=== PATIENT | female | born 1990 | race Caucasian/White ===

== ENCOUNTER 2021-11-27 20:08 | Day surgery (SDC) | payer BC ==
[2021-11-27 20:30] VITALS: BMI 29.1
[2021-11-27] MEDS ORDERED: Promethazine HCl 25 MG/ML VIAL IM PRN (20:52)
[2021-11-27] MEDS ORDERED: hydrALAZINE 20 MG/ML VIAL SLOW IVP PRN (20:53)
[2021-11-27] MEDS ORDERED: Lactated Ringer's 1,000 ML IV SCH (21:00)
[2021-11-27 21:21] LABS: #Eosinphils 0.1 10x3/uL (0.0-0.5); #Monocytes 0.8 10x3/uL (0.0-1.1); #Neutrophils 5.7 10x3/uL (1.5-8.4); %Basophils 0.2 % (0.0-2.0); %Eosinophils 0.9 % (0.0-6.0); %Lymphocytes 24.5 % (18.0-47.0); %Neutrophils 64.7 % (40.0-75.0); Mean Corpuscular HGB CONC 35.3 g/dL (32.0-36.0); Mean Corpuscular Hemoglobin 34.2 pg (27.0-33.0); Mean Corpuscular Volume 96.9 fl (81.6-98.3); Mean Platelet Volume 11.2 fl (7.4-10.4); Platelet Count 157 10x3/uL (150-450); RBC Distribution Width 12.6 % (11.5-14.5); Red Blood Cell (RBC) Count 3.51 10x6/uL (3.90-5.03); White Blood Cell (WBC) Count 8.8 10x3/uL (3.5-10.5)
[2021-11-27] MEDS ORDERED: Metoclopramide HCl 10 MG/2 ML VIAL IVP SCH (21:30)
[2021-11-27 21:33] LABS: Anion Gap 12 mmol/L (10-20); BUN (Urea Nitrogen) 7 mg/dL (7.0-18.7); Calc. Creatinine Clearance 152 mL/min (70-130); Calcium 8.9 mg/dL (7.8-10.44); Carbon Dioxide 24 mmol/L (22-29); Chloride 108 mmol/L (98-107); Glucose 90 mg/dL (70-105); Magnesium 1.9 mg/dL (1.6-2.6); Potassium 3.6 mmol/L (3.5-5.1); Sodium 140 mmol/L (136-145)
== END 2021-11-27 22:45 | disposition home or self-care (01) ==
LOC: CSHLD/OP 20:08
PROVIDERS: ATTEND Obstetrics & Gynecology
DX: O21.2 Late vomiting of pregnancy (principal); O99.282 Endocrine, nutritional and metabolic diseases complicating pregnancy, second trimester; E86.0 Dehydration; O99.891 Other specified diseases and conditions complicating pregnancy; R19.7 Diarrhea, unspecified; Z3A.24 24 weeks gestation of pregnancy
CPT/HCPCS: 80048; 83735; 85025; J2550; J2765

== ENCOUNTER 2022-02-23 01:34 | Inpatient (IN) | payer BC ==
[2022-02-23 01:58] VITALS: BMI 29.9
[2022-02-23] MEDS ORDERED: hydrALAZINE 20 MG/ML VIAL SLOW IVP PRN ×2 (02:43→04:18)
[2022-02-23] MEDS ORDERED: Promethazine HCl 25 MG/ML VIAL IM SCH (02:45)
[2022-02-23] MEDS ORDERED: Morphine 10 MG/ML VIAL SLOW IVP SCH (02:45)
[2022-02-23] MEDS ORDERED: diphenhydrAMINE 50 MG/ML VIAL IVP PRN ×2 (03:34→14:52)
[2022-02-23] MEDS ORDERED: Butorphanol Tartrate 1 MG/ML VIAL SLOW IVP SCH (03:45)
[2022-02-23 04:04] LABS: Hemoglobin 11.8 g/dL (12.0-15.5); Mean Corpuscular HGB CONC 35.1 g/dL (32.0-36.0); Mean Corpuscular Hemoglobin 31.3 pg (27.0-33.0); Mean Corpuscular Volume 89.1 fl (81.6-98.3); Mean Platelet Volume 12.2 fl (7.4-10.4); Platelet Count 148 10x3/uL (150-450); RBC Distribution Width 12.8 % (11.5-14.5); Red Blood Cell (RBC) Count 3.77 10x6/uL (3.90-5.03); White Blood Cell (WBC) Count 12.1 10x3/uL (3.5-10.5)
[2022-02-23] MEDS ORDERED: Promethazine HCl 25 MG/ML VIAL IM PRN ×2 (04:18→14:52)
[2022-02-23] MEDS ORDERED: Ibuprofen 800 MG TAB PO PRN (04:18)
[2022-02-23] MEDS ORDERED: HYDROcodone/Acetaminophen 5/325 mg Tablet PO PRN (04:18)
[2022-02-23] MEDS ORDERED: Lidocaine 1% (PF) 30 ML VIAL SC PRN (04:18)
[2022-02-23] MEDS ORDERED: Lactated Ringer's 1,000 ML IV SCH (04:30)
[2022-02-23 05:01] LABS: Hep B Surf Ag Non-Reactive S/CO (NonReactive); Syphilis Antibody Nonreactive (Nonreactive); Syphilis Antibody Index 0.05 S/CO (<1.00 Non-Reactive)
[2022-02-23 05:24] LABS: HBSAg Index 0.15 S/CO (0-0.99)
[2022-02-23 05:42] LABS: Glucose 94 mg/dL (70-105)
[2022-02-23] MEDS ORDERED: Penicillin G Potassium 5 MILL.UNITS VIAL ONE (05:58)
[2022-02-23] MEDS ORDERED: Penicillin G Potassium 5 MILL.UNITS in Sodium Chloride 0.9% 100 ML IVPB SCH (06:00)
[2022-02-23] MEDS: Lactated Ringer's 1,000 ML IV SCH ×2 (06:03→16:47)
[2022-02-23] MEDS: Ondansetron PF 4 MG/2 ML Vial IVP PRN ×3 (06:58→20:15)
[2022-02-23] MEDS ORDERED: Butorphanol Tartrate 1 MG/ML VIAL ONE (08:14)
[2022-02-23] MEDS: NS w/ Oxytocin 30 units 500 ML IV SCH ×2 (08:49→21:09)
[2022-02-23] MEDS ORDERED: Pen G 2.5 MILL.UNITS/50 ML BAG IVPB SCH (09:00)
[2022-02-23] MEDS: Penicillin G 2.5 MILL.units 50 ML IVPB SCH ×2 (10:00→14:00)
[2022-02-23] MEDS ORDERED: Butorphanol Tartrate 1 MG/ML VIAL SLOW IVP PRN (11:19)
[2022-02-23] MEDS ORDERED: Fentanyl 2 mcg/Bup 0.1% Cadd 100 ML ONE (13:53)
[2022-02-23] MEDS ORDERED: Ondansetron PF 4 MG/2 ML Vial IVP PRN (14:52)
[2022-02-23] MEDS ORDERED: Acetaminophen 325 MG TAB PO PRN (14:52)
[2022-02-23] MEDS ORDERED: Naloxone HCl 0.4 mg/ml Vial IVP PRN ×2 (14:52)
[2022-02-23] MEDS ORDERED: Lactated Ringer's 500 ML IV PRN (14:52)
[2022-02-23] MEDS ORDERED: ePHEDrine Sulfate 50 MG/10 ML VIAL SLOW IVP PRN (14:52)
[2022-02-23] MEDS ORDERED: Hydrocerin (Eucerin) Cream 120 gm Jar TOP PRN (14:52)
[2022-02-23] MEDS ORDERED: Communication Order-Pharmacy FS SCH (15:00)
[2022-02-23] MEDS: Fentanyl 2 mcg/Bupivacaine 0.1% Cassette 100 ML EPIDURAL SCH ×2 (15:14→19:27)
[2022-02-23 15:52] LABS: SARS-CoV-2 PCR by NAA Not Detected (NotDetected)
[2022-02-23] MEDS ORDERED: Fentanyl 100 MCG/2 ML VIAL ONE ×2 (16:23→18:42)
[2022-02-23] MEDS ORDERED: Bupivacaine 0.25% HCL 30 ML VIAL ONE (20:00)
[2022-02-23] MEDS ORDERED: Bupivacaine/Epinephrine 0.25% 30 ML VIAL ONE (20:00)
[2022-02-23] MEDS ORDERED: Misoprostol 200 MCG TAB ONE (20:06)
[2022-02-23] MEDS ORDERED: Methylergonovine 0.2 MG/ML VIAL ONE (20:06)
[2022-02-23] MEDS ORDERED: Carboprost 250 MCG/ML AMP ONE (20:07)
[2022-02-24] MEDS: Ibuprofen 800 MG TAB PO SCH ×3 (05:56→21:49)
[2022-02-24] MEDS: Penicillin G 2.5 MILL.units 50 ML IVPB SCH ×3 (08:24→19:37)
[2022-02-24] MEDS: Lactated Ringer's 1,000 ML IV SCH ×2 (08:25→19:37)
[2022-02-24] MEDS ORDERED: Lanolin Ointment 7 GM TUBE TOP PRN (08:52)
[2022-02-25 00:49] VITALS: TEMP 98.1
[2022-02-25] MEDS: Lactated Ringer's 1,000 ML IV SCH ×2 (01:18→04:44)
[2022-02-25] MEDS: Penicillin G 2.5 MILL.units 50 ML IVPB SCH ×4 (01:19→07:42)
[2022-02-25] MEDS: Ibuprofen 800 MG TAB PO SCH ×2 (06:24→13:58)
[2022-02-25 07:37] VITALS: BP 118/59
== END 2022-02-25 14:50 | disposition home or self-care (01) | DRG 807 ==
LOC: CSHLD/OP 01:34 → CSHLD 05:24 → CSHPP 22:50
PROVIDERS: ADMIT Advanced Practice Midwife; ATTEND Obstetrics & Gynecology
PROC: 10E0XZZ Delivery of Products of Conception, External Approach (ICD-10-PCS; principal; 2022-02-23)
DX: O60.14X0 Preterm labor third trimester with preterm delivery third trimester, not applicable or unspecified (principal); Z37.0 Single live birth; Z3A.36 36 weeks gestation of pregnancy; Z20.822 Contact with and (suspected) exposure to COVID-19; Z88.5 Allergy status to narcotic agent; O24.429 Gestational diabetes mellitus in childbirth, unspecified control
CPT/HCPCS: 51702; 82947; 85027; 86780; 86850; 86900; 86901; 87340; 99285; J0595; J2270; J2405; J2540; J2550; J2590; J3490; J7120; S0020; U0003; U0005